=== PATIENT | female | born 1980 | race African-American/Black ===

== ENCOUNTER 2023-01-28 13:24 | Inpatient (IN) | payer MEDICARE, OTHER ==
[~2023-01-28] VITALS: Ht 170.2 cm; Wt 58.9 kg
[2023-01-28] MEDS ORDERED: IV NS 0.9% 500 ML BAG IV ONE (14:30)
[2023-01-28] MEDS ORDERED: ACET-868 PO (15:08)
[2023-01-28] MEDS ORDERED: MULT-213 PO (15:08)
[2023-01-28] MEDS ORDERED: CHLO50TA24 PO (15:08)
[2023-01-28] MEDS ORDERED: ACETAMINOPHEN 325 MG TABLET PO PRN ×2 (17:00→17:30)
[2023-01-28] MEDS ORDERED: ZOLPIDEM TARTRATE 5 MG TABLET PO PRN (17:30)
[2023-01-28] MEDS ORDERED: Z GUARD REMEDY 4 OZ OINT TP PRN (17:30)
[2023-01-28] MEDS ORDERED: LORAZEPAM 1 MG TABLET PO PRN (17:30)
[2023-01-28] MEDS ORDERED: MAGNESIUM HYDROXIDE 30 ML UDC PO PRN (17:30)
[2023-01-28] MEDS ORDERED: MAG HYDROX/AL HYDROX/SIMETH 30 ML UDC PO PRN (17:30)
[2023-01-28] MEDS ORDERED: TEMAZEPAM 15 MG CAPSULE PO PRN (17:30)
[2023-01-28] MEDS ORDERED: ONDANSETRON HCL/PF 4 MG/2 ML VIAL IVP PRN (17:30)
[2023-01-28 20:00] VITALS: BP 130/79; TEMP 97.8; O2SAT 95
[2023-01-28] MEDS ORDERED: chlorproMAZINE HCL 25 MG TABLET PO SCH (22:00)
[2023-01-29] MEDS: MULTIVIT W/MINERALS 1 TAB TABLET PO SCH (09:00)
[2023-01-29] MEDS ORDERED: OLANZAPINE 10 MG VIAL IM PRN (10:30)
[2023-01-29] MEDS: OLANZAPINE ZYDIS 5 MG TAB.RAPDIS PO SCH ×3 (10:30→16:59)
[2023-01-29] MEDS: MIRTAZAPINE 15 MG TABLET PO SCH (21:04)
[2023-01-30] MEDS: OLANZAPINE ZYDIS 5 MG TAB.RAPDIS PO SCH ×2 (09:00→17:00)
[2023-01-30] MEDS: ENSURE ENLIVE 237 ML LIQUID (VANILLA) PO SCH (09:00)
[2023-01-30] MEDS: MULTIVIT W/MINERALS 1 TAB TABLET PO SCH (09:00)
[2023-01-30] MEDS: MIRTAZAPINE 15 MG TABLET PO SCH (21:31)
[2023-01-31] MEDS: ENSURE ENLIVE 237 ML LIQUID (VANILLA) PO SCH (09:00)
[2023-01-31] MEDS: OLANZAPINE ZYDIS 5 MG TAB.RAPDIS PO SCH ×2 (09:00→17:00)
[2023-01-31] MEDS: MULTIVIT W/MINERALS 1 TAB TABLET PO SCH (09:00)
[2023-01-31] MEDS: MIRTAZAPINE 15 MG TABLET PO SCH (22:00)
[2023-02-01] MEDS: ENSURE ENLIVE 237 ML LIQUID (VANILLA) PO SCH (09:00)
[2023-02-01] MEDS: OLANZAPINE ZYDIS 5 MG TAB.RAPDIS PO SCH ×2 (09:00→17:00)
[2023-02-01] MEDS: MULTIVIT W/MINERALS 1 TAB TABLET PO SCH (09:00)
[2023-02-01] MEDS ORDERED: HYDROCODONE/APAP 5/325MG TABLET PO PRN (09:30)
[2023-02-01] MEDS: MIRTAZAPINE 15 MG TABLET PO SCH (21:32)
[2023-02-02] MEDS: ENSURE ENLIVE 237 ML LIQUID (VANILLA) PO SCH (09:00)
[2023-02-02] MEDS: MULTIVIT W/MINERALS 1 TAB TABLET PO SCH (09:00)
[2023-02-02] MEDS: OLANZAPINE ZYDIS 5 MG TAB.RAPDIS PO SCH (09:00)
== END 2023-02-02 13:50 | DRG 640 ==
LOC: ER 14:11 → MEDSG1 16:30 → MED 20:38
PROVIDERS: ADMIT Internal Medicine; ATTEND Nurse Practitioner Acute Care
DX: R62.7 Adult failure to thrive (principal); E43 Unspecified severe protein-calorie malnutrition; R64 Cachexia; F20.0 Paranoid schizophrenia; E11.9 Type 2 diabetes mellitus without complications; F32.9 Major depressive disorder, single episode, unspecified; Z68.20 Body mass index [BMI] 20.0-20.9, adult; Z87.820 Personal history of traumatic brain injury; M62.50 Muscle wasting and atrophy, not elsewhere classified, unspecified site; F29 Unspecified psychosis not due to a substance or known physiological condition; I95.9 Hypotension, unspecified; Z91.041 Radiographic dye allergy status; Z91.013 Allergy to seafood; Z88.8 Allergy status to other drugs, medicaments and biological substances; Z91.018 Allergy to other foods; Z79.899 Other long term (current) drug therapy; E88.09 Other disorders of plasma-protein metabolism, not elsewhere classified; Z91.148 Patient's other noncompliance with medication regimen for other reason; F39 Unspecified mood [affective] disorder
CPT/HCPCS: 71045-TC; 97530-TC; G0378; Q0161